=== PATIENT | male | born 1945 | race African-American/Black ===

== ENCOUNTER → 2018-06-25 | Outpatient (CLI) | payer MEDICARE ==
[~2018-06-25] MED LIST: REGADENOSON 0.4 MG/5 ML DISP.SYRIN. IV ONE
--- NOTE | 2018-06-25 09:49 | CARD ---
MR#: [id number] Date of Study: 06/25/2018 Ordering Physician: ISA HUGO, Referring Physician: ISA HUGO, Tech: Haylee Aguayo APPROVED REPORT EXAM: Two-dimensional and M-mode echocardiogram with Doppler and color Doppler. Other Information Quality : GoodHR: 82bpm INDICATION CAD RISK FACTORS Hypertension Hyperlipidemia Smoking 2D DIMENSIONS Left Atrium(2D)2.6 (1.6-4.0cm)IVSd1.2 (0.7-1.1cm) Aortic Root(2D)2.8 (2.0-3.7cm)LVDd5.2 (3.9-5.9cm) LVOT Diameter2.0 (1.8-2.4cm)PWd0.9 (0.7-1.1cm) LVDs3.8 (2.5-4.0cm)FS (%) 25.7 % SV63.7 mlLVEF(%)50.2 (>50%) Aortic Valve AoV Peak Zane.141.5cm/sAoV VTI25.1cm AO Peak GR.8.0mmHgLVOT Peak Zane.73.0cm/s LVOT VTI 13.89cmAO Mean GR.4mmHg MINE (VMAX)1.12mo3WPO (VTI)1.77cm2 Mitral Valve MV E Kyajwpvd35.2cm/sMV E Peak Gr.149mmHg MV DECEL [id number] A Mqnltmxq85.3cm/s MV E Mean Gr.3mmHgMV UKY47xr E/A Ratio0.8MVA (PHT)3.02cm2 TDI E/Lateral E'9.1E/Medial E'13.9 Pulmonary Valve PV Peak Hlhnihls91.1cm/sPV Peak Grad.4mmHg Tricuspid Valve TR P. Vidsxiuc856rn/sRAP LKFLIUIJ8hyOe TR Peak Gr.72fwTrAKZT09yyMq Pulmonary Vein S1 Tykhlnsb53.4cm/sD2 Ravaldyw57.8cm/s PVa urtmkflz021hcuf LEFT VENTRICLE The left ventricle is normal size. There is borderline concentric left ventricular hypertrophy. The s ystolic function is moderately impaired. EF 30-35% There is moderate global hypokinesis of the left v entricle. Transmitral Doppler flow pattern is Grade I-abnormal relaxation pattern. RIGHT VENTRICLE The right ventricle is normal size. There is normal right ventricular wall thickness. The right ventr icular systolic function is normal. ATRIA The left atrium size is normal. The right atrium size is normal. The interatrial septum is intact wit h no evidence for an atrial septal defect or patent foramen ovale as noted on 2-D or Doppler imaging. AORTIC VALVE The aortic valve is normal in structure and function. Doppler and Color Flow revealed no significant aortic regurgitation. There is no significant aortic valvular stenosis. MITRAL VALVE The posterior leaflet is restricted. There is no evidence of mitral valve prolapse. There is no suha l valve stenosis. Doppler and Color-flow revealed moderate posteriorly directed mitral regurgitation. TRICUSPID VALVE The tricuspid valve is normal in structure and function. Doppler and Color Flow revealed trace tricus pid regurgitation. There is no tricuspid valve stenosis. PULMONIC VALVE The pulmonic valve is not well visualized. There is no pulmonic valvular stenosis. GREAT VESSELS The aortic root is normal in size. The IVC is normal in size and collapses >50% with inspiration. PERICARDIAL EFFUSION There is a trace pericardial effusion. Critical Notification Critical Value: No <Conclusion> The systolic function is moderately impaired. EF 30-35% There is moderate global hypokinesis of the left ventricle. Doppler and Color-flow revealed moderate posteriorly directed mitral regurgitation. Signed by : Isa Hugo, Electronically Approved : 06/25/2018 09:47:07
--- NOTE | 2018-06-25 13:30 | RAD ---
MR#: [id number] Date of Study: 06/25/2018 Ordering Physician: ISA KAPLAN, Referring Physician: JUAN LOVE Tech: KARLIE Gama APPROVED REPORT Test Type: Pharmacological Stress Nurse/Tech: Micheline CASTAÑEDA Test Indications: CAD Cardiac History: CAD, HTN, CO in 2006 w/ 1 stent placement Medications: See EMR Medical History: X-Smoker, Hep C, See EMR Resting ECG: SR w/ BBB Resting Heart Rate: 75 bpm Resting Blood Pressure: 136/79mmHg Pretest Chest Pain: No chest pain Nurse/Tech Notes Lungs CTA, Heart tones regular Consent: The procedure was explained to the patient in lay terms. Informed consent was witnessed. Rehan eout was entered into [employer]. History and Stress Test performed by RT Karen (R) (N) Pharm. Details Pharmacologic stress testing was performed using 0.4mg per 5ml of regadenoson given intravenously ove r 7-10 seconds. Stress Symptoms No chest pain or symptoms. Pt has ST depression in leads II, III, AVF of 0.5-[address] is elevated by 1 box in AVL and V3. POST EXERCISE Reason for Termination: Infusion complete Max HR: 100 bpm Max Blood Pressure: 139/67mmHg Chest Pain: No. Arrhythmia: No. ST Change: Yes. See Stress Symptoms INTERPRETATION Stress EKG Conclusion: Baseline EKG showed sinus rhythm, IVCD, old septal CO. Non diagnostic changes at peak stress. No arrhythmias. Imaging Protocol IMAGE PROTOCOL: Rest Tc-99m/stress Tc-99m 1 day Rest: Stress: Viability: Radiopharm.Tc99m DfagsamktTo74k Sestamibi Dose11.9mCi 33mCi Duration 15min. 11min. Img Date 06/25/2018 06/25/2018 Inj-Img Wffl32cai. 60min. Rest Admin Site:IV - Right WristAdministrator:KARLIE Gama Stress Admin Site: IV - Right WristAdministrator: RT Karen (R)(N) STRESS DATA End Diast. Vol.156.0mlAv. Heart Rate88.0bpm End Syst. Vol.86.0mlCO Index BSA0.0L/min Myocardial Dsgn312.0gEject. Yvifuafe26.0% Stress Rates Pk. Fill Rate2.56EDV/secLVtime Pk. Fill 203.10msec Pk. Empty Rate2.18ESV/secLVtime Pk. Zayax420.28msec 1/3 Pk. Fill1.20EDV/sec Stress Scores Regional WT3.00Summed WT22.00 Regional WM0.00Summed WM27.00 Study quality was good. Left Ventricular size was Normal at Rest and Stress. Wall Motion Abnormal septal wall motion with ejection fraction calculated at 45%. LV Perf. Quant 17 Seg. SSS2.00 17 Seg. SRS2.00 17 Seg. SDS2.00 Stress Defect Extent (% LAD)0.00Rest Defect Extent (% LAD)0.00Rev. Defect Extent (% LAD)0.00 Stress Defect Extent (% LCX) 20.00Rest Defect Extent (% LCX)0.00Rev. Defect Extent (% LCX)20.00 Stress Defect Extent (% RCA)0.00Rest Defect Extent (% RCA)2.20Rev. Defect Extent (% RCA)0.00 Stress Defect Extent (% SHARON)4.30Rest Defect Extent (% SHARON)0.90Rev. Defect Extent (% SHARON)4.30 Conclusion 1. Regadenoson cardioisotope stress test did not show any evidence of ischemia or infarct. 2. Abnormal septal wall motion with ejection fraction calculated at 45%. 3. Low to intermediate risk for cardiac events. Signed by : Andres Vieira, Electronically Approved : 06/25/2018 13:28:23
== END | disposition home or self-care (01) ==
LOC: NM 07:31
PROVIDERS: ATTEND Internal Medicine Cardiovascular Disease
DX: I34.0 Nonrheumatic mitral (valve) insufficiency (principal); I25.10 Atherosclerotic heart disease of native coronary artery without angina pectoris; I10 Essential (primary) hypertension; E78.5 Hyperlipidemia, unspecified; F17.200 Nicotine dependence, unspecified, uncomplicated
CPT/HCPCS: 78452; 93017; 93306; 96374; A9500; J2785

== ENCOUNTER → 2018-12-27 | Outpatient (CLI) | payer MEDICARE ==
--- NOTE | 2018-12-27 14:02 | RAD ---
MR#: [id number] Date of Study: 12/27/2018 Ordering Physician: ISA KAPLAN, Referring Physician: ISA KAPLAN, Tech: Haylee Ordonez, HAYLEE, RVT, RTR APPROVED REPORT Patient Location: OUT-PATIENT Laterality:Bilateral Indications MS 2007 Risk Factors Hypertension: CAD, PAD Doppler Spectral Velocity Analysis Right Left pCCA 109/19 cm/spCCA 154/23 cm/s mCCA 96/16 cm/smCCA 154/30 cm/s dCCA 109/24 cm/sdCCA 134/23 cm/s Bulb 93/21 cm/sBulb 117/18 cm/s ECA 120/15 cm/sECA 167/22 cm/s pICA 106/20 cm/spICA 108/24 cm/s Lucrecia 83/23 cm/smICA 91/19 cm/s dICA 102/24 cm/sdICA 97/27 cm/s Vert. 63/13 cm/sVert. 73/17 cm/s ICA/CCA 0.97ICA/CCA 0.70 Findings Grayscale images of the bilateral carotid vessels demonstrates moderate diffuse plaque. Spectral waveforms and color Doppler of the right common carotid, internal carotid and external carot id vessels demonstrates overall 0 to less than 50% stenosis by velocity criteria. Normal ICA to CCA r atios. Normal antegrade vertebral velocities on the right side. Spectral waveforms and color Doppler suggest approximately moderate degree of stenosis at 50-69% by v elocity criteria involving the proximal and mid common carotid artery. No significant stenosis is álvaro ntified in the internal carotid vessels. There is likely again moderate disease noted in the external carotid artery. Normal ICA to CCA ratios on the left side. Normal vertebral velocities. Critical Notification Critical Value: No <Conclusion> 1. Mild to moderate bilateral carotid occlusive disease. No high-grade stenosis. Signed by : Isa Kaplan, Electronically Approved : 12/27/2018 14:01:40
== END | disposition home or self-care (01) ==
LOC: NM 09:58
PROVIDERS: ATTEND Internal Medicine Cardiovascular Disease
DX: I65.23 Occlusion and stenosis of bilateral carotid arteries (principal); I10 Essential (primary) hypertension; I73.9 Peripheral vascular disease, unspecified; I25.5 Ischemic cardiomyopathy
CPT/HCPCS: 78472; 93880; A9560

== ENCOUNTER → 2019-11-20 | Outpatient (CLI) | payer MEDICARE ==
--- NOTE | 2019-11-20 17:42 | RAD ---
MR#: [id number] Date of Study: 11/20/2019 Ordering Physician: ISA KAPLAN, Referring Physician: ISA KAPLAN, Tech: Perico Stone MBA, RDMS, RVT, RDCS, RTR APPROVED REPORT Patient Location: OUT-PATIENT Indications PVD Duplex Results A/PTransverseLongitudinal Proximal Aorta 2.5cm2.2cm Mid Aorta 2.3cm1.8cm Distal Aorta 2.2cm2.2cm Doppler VelocityWaveform Proximal Aorta 55.0 cm/sec Aorta Mid. 172.0 cm/sec Distal Aorta 189.0 cm/sec Rt. Common Iliac Sirtfl981.0 cm/sec Lt. Common Iliac Artery 93.0 cm/sec Findings Grayscale images of the abdominal aorta demonstrate moderate diffuse atherosclerotic plaque. No foca l aneurysm or dissection is noted. No significant stenosis identified. Dimensions as noted above. Critical Notification Critical Value: No <Conclusion> 1. No evidence of abdominal aortic aneurysm. Signed by : Isa Kaplan, Electronically Approved : 11/20/2019 17:41:51
== END | disposition home or self-care (01) ==
LOC: US 07:10
PROVIDERS: ATTEND Internal Medicine Cardiovascular Disease
DX: I73.9 Peripheral vascular disease, unspecified (principal); I70.0 Atherosclerosis of aorta
CPT/HCPCS: 76770

== ENCOUNTER → 2020-08-21 | Outpatient (CLI) | payer MEDICARE ==
--- NOTE | 2020-08-21 11:15 | CARD ---
MR#: [id number] Date of Study: 08/21/2020 Ordering Physician: ADAIR KAPLAN, Referring Physician: ADAIR KAPLAN, Tech: Yadira Mckay [facility] APPROVED REPORT EXAM: Two-dimensional and M-mode echocardiogram with Doppler and color Doppler. Other Information Quality : AverageHR: 62bpm Rhythm : NSR INDICATION CAD RISK FACTORS Hypertension Hyperlipidemia 2D DIMENSIONS RVDd1.9 (2.9-3.5cm)Left Atrium(2D)3.1 (1.6-4.0cm) IVSd0.9 (0.7-1.1cm)Aortic Root(2D)3.0 (2.0-3.7cm) LVDd4.6 (3.9-5.9cm)LVOT Diameter2.0 (1.8-2.4cm) PWd0.8 (0.7-1.1cm)LVDs3.3 (2.5-4.0cm) FS (%) 27.8 %SV52.6 ml LVEF(%)53.9 (>50%) Aortic Valve AoV Peak Zane.118.0cm/sAoV VTI28.7cm AO Peak GR.5.6mmHgLVOT Peak Zane.92.6cm/s AO Mean GR.3mmHgAVA (VMAX)2.43cm2 Mitral Valve MV E Thxodhja44.3cm/sMV DECEL ROQG262jz MV A Lunvyydq622.4cm/sE/A Ratio0.7 Pulmonary Valve PV Peak Tfsxmsqz18.3cm/s Tricuspid Valve TR P. Xktacitn947uu/sTR Peak Gr.19mmHg LEFT VENTRICLE The left ventricle is normal size. There is normal left ventricular wall thickness. The ejection frac tion is moderately impaired. Estimated ejection fraction 40%. There is global hypokinesis of the left ventricle. Septal motion suggestive of conduction defect. Transmitral Doppler flow pattern is Grade I-abnormal relaxation pattern. RIGHT VENTRICLE The right ventricle is normal size. There is normal right ventricular wall thickness. The right ventr icular systolic function is normal. ATRIA The left atrium size is normal. The right atrium size is normal. The interatrial septum is intact wit h no evidence for an atrial septal defect or patent foramen ovale as noted on 2-D or Doppler imaging. AORTIC VALVE The aortic valve is normal in structure and function. Doppler and Color Flow revealed no significant aortic regurgitation. There is no significant aortic valvular stenosis. MITRAL VALVE The mitral valve is normal in structure and function. There is no evidence of mitral valve prolapse. There is no mitral valve stenosis. Doppler and Color-flow revealed mild to moderate mitral regurgitat ion. TRICUSPID VALVE The tricuspid valve is normal in structure and function. Doppler and Color Flow revealed mild tricusp id regurgitation. Estimated PAP 20 mmHg. There is no tricuspid valve stenosis. PULMONIC VALVE Doppler and Color Flow revealed mild pulmonic valvular regurgitation. There is no pulmonic valvular s tenosis. GREAT VESSELS The aortic root is normal in size. The ascending aorta is normal in size. The IVC is normal in size a nd collapses >50% with inspiration. PERICARDIAL EFFUSION There is no evidence of significant pericardial effusion. Critical Notification Critical Value: No <Conclusion> The ejection fraction is moderately impaired. Estimated ejection fraction 40%. There is global hypokinesis of the left ventricle. Septal motion suggestive of conduction defect. Doppler and Color-flow revealed mild to moderate mitral regurgitation. Signed by : Adair Kaplan, Electronically Approved : 08/21/2020 11:15:07
== END ==
LOC: ECHO 07:36
PROVIDERS: ATTEND Internal Medicine Cardiovascular Disease
DX: I08.8 Other rheumatic multiple valve diseases (principal); I25.5 Ischemic cardiomyopathy
CPT/HCPCS: 93306

== ENCOUNTER → 2021-02-19 | Outpatient (CLI) | payer MEDICARE ==
--- NOTE | 2021-02-19 13:17 | RAD ---
MR#: [id number] Date of Study: 02/19/2021 Ordering Physician: ISA KAPLAN, Referring Physician: JUAN LOVE Tech: KARLIE Gama APPROVED REPORT Test Type: Pharmacological Stress Nurse/Tech: Angi Bain RN Test Indications: Ischemic Cardiomyopathy Cardiac History: HTN, [place] w/ stent 10+ yrs ago, See EMR. Medications: See EMR. Medical History: See EMR. Resting ECG: SR w/ BBB Resting Heart Rate: 65 bpm Resting Blood Pressure: 142/68mmHg Pretest Chest Pain: No chest pain Nurse/Tech Notes Lungs CTA, Heart tones regular. Consent: The procedure was explained to the patient in lay terms. Informed consent was witnessed. Rehan eout was entered into [employer] History and Stress Test performed by KARLIE Gama Pharm. Details Pharmacologic stress testing was performed using 0.4mg per 5ml of regadenoson given intravenously ove r 7-10 seconds. Stress Symptoms No chest pain or symptoms. POST EXERCISE Reason for Termination: Infusion complete Max HR: 89 bpm Max Blood Pressure: 155/75mmHg Blood Pressure response to exercise: Normal blood pressure response during stress. Chest Pain: No. Arrhythmia: No. few PVCs. ST Change: No. INTERPRETATION Stress EKG Conclusion: The resting EKG shows a sinus rhythm with a nonspecific interventricular block and nonspecific ST T wave changes. The stress EKG shows no significant changes from baseline. No EKG evidence of stress-induced ischemia. Imaging Protocol IMAGE PROTOCOL: Rest Tc-99m/stress Tc-99m 1 day Rest: Stress: Viability: Radiopharm.Tc99m UfpnciyjvAb45q Sestamibi Gkic17nCm 33mCi Duration 15min. 13min. Img Date 02/19/2021 02/19/2021 Inj-Img Blxb47eyo. 60min. Rest Admin Site:IV - Left WristAdministrator:RT Karen (R)(N) Stress Admin Site: IV - Left WristAdministrator: KARLIE Gama STRESS DATA End Diast. Vol.161.0mlLVEDV index BSA90.0ml End Syst. Vol.100.0mlLVESV index BSA56.0ml Myocardial Jgfp933.0gEject. Dwqkxxtb52.0% Stress Scores Regional WT3.00Summed WT24.00 Regional WM1.00Summed WM27.00 LV Perfusion The stress scans show mild inferior wall thinning. The rest scans show mild inferior wall thinning. Nuclear imaging shows no significant reversible ischemia. Nuclear imaging shows mild fixed inferior wall thinning most suggestive of an attenuation defect. Wall Motion Left ventricular systolic function is moderately decreased on the global basis with an ejection fract ion of 36%. LV Perf. Quant 17 Seg. SSS5.00 17 Seg. SRS3.00 17 Seg. SDS4.00 Stress Defect Extent (% LAD)0.00Rest Defect Extent (% LAD)1.30Rev. Defect Extent (% LAD)0.00 Stress Defect Extent (% LCX) 13.80Rest Defect Extent (% LCX)0.00Rev. Defect Extent (% LCX)13.80 Stress Defect Extent (% RCA)15.60Rest Defect Extent (% RCA)18.90Rev. Defect Extent (% RCA)3.30 Stress Defect Extent (% SHARON)8.00Rest Defect Extent (% SHARON)6.10Rev. Defect Extent (% SHARON)3.90 Conclusion 1. Abnormal resting EKG but no EKG evidence of stress-induced ischemia. 2. Nuclear imaging shows no significant reversible ischemia. 3. Nuclear imaging shows a mild fixed inferior wall defect which is most suggestive of an attenuation defect. 4. Moderately decreased LV systolic function on a global basis with an ejection fraction of 36%. 5. Moderate to moderately high risk Lexiscan nuclear stress test. Signed by : Kevin Perez MD Electronically Approved : 02/19/2021 13:17:18
== END ==
LOC: NM 08:44
PROVIDERS: ATTEND Internal Medicine Cardiovascular Disease
DX: I25.5 Ischemic cardiomyopathy (principal); R94.39 Abnormal result of other cardiovascular function study
CPT/HCPCS: 78452; 93017; A9500; J2785

== ENCOUNTER 2021-07-26 08:58 | Observation (INO) | payer MEDICARE ==
[~2021-07-26] VITALS: Ht 180.3 cm; Wt 59.9 kg
[~2021-07-26 08:58] MED LIST changes: +IV RINGERS,LACTATED 1000ML 1,000 ML IV SCH; +LIDOCAINE 1% PF 5 ML VIAL. ONE; +PROPOFOL 100 ML IV ONE; -REGADENOSON 0.4 MG/5 ML DISP.SYRIN. IV ONE
[2021-07-26] MEDS ORDERED: SACU1TAB7 PO (09:21)
[2021-07-26] MEDS ORDERED: ATOR20TA58 PO (09:21)
[2021-07-26] MEDS ORDERED: CLOP75TA PO (09:21)
[2021-07-26] MEDS ORDERED: ASPI-630 PO (09:21)
[2021-07-26] MEDS ORDERED: METO50TA4 PO (09:21)
[2021-07-26] MEDS ORDERED: SPIR25TA5 PO (09:21)
[2021-07-26] MEDS ORDERED: CILO100T PO (09:21)
--- NOTE | 2021-07-26 09:34 | EKG ---
[facility] [address] [place] [address] Test Date: 2021-07-26 Test Time: 09:29:22 Pat Name: SHAHEED ARAYA Department: Room: Gender: Registered Nurse: SJ : 1945 Requested By: LEXIS VIEIRA Order Number: [id number] Reading MD: Lexis Vieira Measurements Intervals [place] Rate: 79 P: 90 MD: 138 QRS: 59 QRSD: 138 T: 88 QT: 412 QTc: 479 Interpretive Statements SINUS RHYTHM LEFT BUNDLE BRANCH BLOCK Electronically Signed On 07-29-2021 8:54:46 RESIDENT CARE SUPERVISOR by Lexis Vieira
[2021-07-26 09:36] LABS: HEMATOCRIT 37.4 % (39.0-53.0); HEMOGLOBIN 11.7 g/dL (13.0-17.5); RED BLOOD COUNT 4.66 x10^6/uL (4.30-5.70); RED CELL DISTRIBUTION WIDTH 16.3 % (11.5-14.5); WHITE BLOOD COUNT 9.1 x10^3/uL (4.0-11.0)
[2021-07-26 09:41] VITALS: BP 147/78
[2021-07-26] MEDS ORDERED: ceFAZolin SODIUM IV Push 1 GM VIAL. IVP ONE ×4 (09:44→19:00)
[2021-07-26 09:50] LABS: PROTHROMBIN TIME PATIENT 13.5 SEC (11.7-14.0)
[2021-07-26 09:56] LABS: CALCIUM 8.9 mg/dL (8.5-10.1); CREATININE 1.2 mg/dL (0.7-1.3); GFR 71.6; POTASSIUM 4.1 mmol/L (3.5-5.1)
[2021-07-26] MEDS ORDERED: ceFAZolin SODIUM 1 GM in IV NORMAL SALINE 100ML 100 ML IRR ONE (10:30)
[2021-07-26] MEDS ORDERED: LIDOCAINE 2%/EPI 1:100,000 20 ML VIAL. ONE (10:32)
[2021-07-26] MEDS ORDERED: IODIXANOL 320 MG/ML 100 ML VIAL. ONE (10:33)
[2021-07-26] MEDS ORDERED: LIDOCAINE 2%/EPI 1:100,000 20 ML VIAL. IJ ONE (11:15)
[2021-07-26] MEDS ORDERED: IODIXANOL 320 MG/ML 100 ML VIAL. IART ONE (11:15)
[2021-07-26] MEDS ORDERED: IV NORMAL SALINE 1000ML BAG 1,000 ML IV SCH (13:15)
--- NOTE | 2021-07-26 13:52 | RAD ---
EXAM: XR CHEST 1V 07/26/2021 1:36 PM CLINICAL INDICATION: Post pacemaker COMPARISON: None TECHNIQUE: AP upright view of the chest FINDINGS: There is a pacemaker/AICD. Heart is normal in size. Lungs are well-expanded. There are yfn cified granulomas in the left lung. There is no consolidation, pleural effusion, or pneumothorax. IMPRESSION: No pneumothorax. Electronically signed by: Aurora Hebert MD (07/26/2021 1:50 PM) [id number]
[2021-07-26 13:55] VITALS: BP 174/85
--- NOTE | 2021-07-26 14:08 | NUR ---
ADMISSION PT [facility]IA FROM BLOOD BANK ATTENDANT AT 1355. HE IS ON A GURNEY, TRANSFERS BY SLIDING WITH ASSIST OF 2. CALL LIGHT IN REACH. ORIENTED TO ROOM ET PLAN OF CARE FOR REMAINDER OF SHIFT. INTAKE INFORMATION COVERED WITH PATIENT.
--- NOTE | 2021-07-26 15:30 | CARD ---
MR#: [id number] Date of Study: 07/26/2021 Ordering Physician: LEXIS VIEIRA, Referring Physician: LEXIS VIEIRA, Tech: APPROVED REPORT EXAM 1. Successful implantation of Biotronik biventricular implantable cardioverter defibrillator (BiV IC D)/cardiac resynchronization therapy-defibrillator (SET BUILDER-D) 2. Defibrillation thresholds measurement at the time of implantation SEDATION ADMINISTERED BY ANESTHESIA FLUORO TIME: 26.9 MIN DOSE: 37.5 GYCM2 CONTRAST: 70CC VISI INDICATIONS Primary prevention of sudden cardiac and cardiac resynchronization therapy in a patient with kn own history of ischemic cardiomyopathy with EF less than 35% and left bundle branch block PROCEDURE After explaining the risks, benefits, and alternative options, informed consent was obtained from the patient. The patient was brought to the cardiac catheterization lab and the left chest and shoulder were prepp ed and draped in the usual fashion. IV conscious sedation was used throughout procedure with appropriate monitoring and was performed in the presence of a registered nurse who was an independent trained observer other than the physician p erforming the procedure. Specimen(s) Removed: No Estimated Blood loss: 20 cc's. 30 cc of 2% lidocaine was infiltrated into the skin and subcutaneous tissues for local anesthesia. A n incision was made over the left infraclavicular fossa and using blunt dissection and cautery, a poc ket was created. Venous access was obtained in the left subclavian vein and 9 Estonian coronary sinus sheath was inserted. Contrast injections were performed using CASS2 catheter in the right atrium and coronary sinus ostium was engaged and CS sheath advanced. Coronary sinus venogram was obtained to i dentify the appropriate cardiac vein for positioning the left ventricular lead. A Biotronik quadripolar left ventricular lead model Rivacor 7HF-T QP, serial #[id number] was advanced u nder fluoroscopic guidance and the tip was positioned in the middle cardiac vein. Venous access was again obtained in the left subclavian vein and 8 and 6 Estonian sheaths inserted. A Biotronik bipolar active-fixation right ventricular lead model Plexa ProMRI, serial #[id number] was advanced under fluoro scopy guidance and the tip was positioned in the right ventricular apex. Following this, a Biotronik bipolar active-fixation right atrial lead model Solia, serial #[id number] was positioned in the righ t atrial appendage. The leads were secured into place and were attached to a Biotronik biventricular ICD/SET BUILDER-D generator. This was placed in the pocket that was subsequently closed in 3 layers. Hemos tasis was secured. Ventricular fibrillation was then induced to check the defibrillation threshold. Patient successfull y converted to sinus rhythm with a 15 J shock therapy. The left ventricular lead showed a sensing am plitude of 20 mV, impedance of 769 ohms and a threshold of 0.7 V. The right ventricular lead showed a sensing amplitude of 14 mV, impedance of 549 ohms and a threshold of 0.8 V. The right atrial lead showed a sensing amplitude of 4.5 mV, impedance of 549 ohms and a threshold of 0.7 V. Patient tolera murphy the procedure well. There were no immediate complications. CONCLUSION Successful implantation of Biotronik biventricular ICD/SET BUILDER-D for primary prevention of sudden cardiac and cardiac resynchronization therapy in a patient with known history of ischemic cardiomyopat hy and left bundle branch block. Signed by : Lexis Vieira, Electronically Approved : 07/26/2021 15:29:57
[2021-07-26] MEDS: traMADol 50 MG TABLET PO PRN (18:18)
[2021-07-26 19:26] VITALS: BP 135/72
[2021-07-26 22:45] VITALS: BP 144/76
[2021-07-27 02:39] VITALS: BP 116/66
[2021-07-27 07:00] VITALS: BP 129/71
[2021-07-27] MEDS ORDERED: ASPIRIN CHEWABLE 81 MG TABLET. PO SCH (08:00)
[2021-07-27] MEDS: traMADol 50 MG TABLET PO PRN (08:35)
[2021-07-27] MEDS ORDERED: SACUBITRIL/VALSARTAN 49/51MG TABLET. PO SCH (09:00)
[2021-07-27] MEDS ORDERED: METOPROLOL SUCC 24HR ER 50 MG TAB.ER.24H. PO SCH (09:00)
[2021-07-27] MEDS ORDERED: SPIRONOLACTONE 25 MG TABLET PO SCH (09:00)
[2021-07-27] MEDS ORDERED: CLOPIDOGREL BISULFATE 75 MG TABLET PO SCH (09:00)
[2021-07-27] MEDS ORDERED: CILOSTAZOL 50 MG TABLET. PO SCH (09:00)
[2021-07-27] MEDS ORDERED: ATORVASTATIN CALCIUM 20 MG TABLET PO SCH (09:00)
--- NOTE | 2021-07-27 09:34 | RAD ---
AP and Lateral Views of the Chest 07/27/2021 9:18 AM Indication: Reason: 1 day post pacemaker Comparison: Chest radiograph July 26, 2021 Findings: Multilead pacemaking/ICD device from left subclavian approach is similar. There is no focal consolidation or infiltrate identified. No pneumothorax. Heart size is normal. No focal infiltrate o r effusion is seen. No acute osseous changes are seen. Impression: No evidence of pneumothorax or other acute cardiopulmonary process. Electronically signed by: Сергей Pedersen MD (07/27/2021 9:32 AM) [id number]
[2021-07-27 10:38] VITALS: BP 115/62
--- NOTE | 2021-07-27 12:26 | NUR ---
SS following for discharge planning. SS reviewed pt chart and discussed with pt RN. Pt is from home with spouse and is currently on room air. Cardiology following. Pt had lead revision on 07/26/2021. Discharge order on the chart for home with self care.
--- NOTE | 2021-07-27 12:49 | PDOC3 ---
MAYURI BARNES [employer] 07/27/21 1249: Discharge Summary Visit Information Date of Admission: Jul 26, 2021 Date of Discharge: Jul 27, 2021 Admitting Diagnosis: icm, htn, chronic systolic CHF, LBBB Final Diagnosis ICM, HTN, chronic systolic CHF, LBBB, S/P HELP DESK REPRESENTATIVE-D Brief Hospital Course Allergies Allergies Coded Allergies Type Severity Reaction Last Updated Verified No Known Drug Allergies 06/25/18 No Vital Signs Vital Signs Date Time Temp Pulse Resp B/P (MAP) Pulse Ox O2 Delivery O2 Flow Rate FiO2 07/27/21 10:38 98.7 84 18 115/62 (79) 95 Room Air 98.7 07/26/21 15:01 1.0 Lab Results Laboratory Tests Test 07/26/21 09:25 White Blood Count 9.1 x10^3/uL (4.0-11.0) Red Blood Count 4.66 x10^6/uL (4.30-5.70) Hemoglobin 11.7 g/dL (13.0-17.5) Hematocrit 37.4 % (39.0-53.0) Mean Corpuscular Volume 80 fL (79-100) Mean Corpuscular Hemoglobin 25 pg (25-35) Mean Corpuscular Hemoglobin Concent 31 g/dL (31-37) Red Cell Distribution Width 16.3 % (11.5-14.5) Platelet Count 259 x10^3/uL (140-400) Prothrombin Time 13.5 SEC (11.7-14.0) Prothromb Time International Ratio 1.0 (0.8-1.1) Sodium Level 143 mmol/L (136-145) Potassium Level 4.1 mmol/L (3.5-5.1) Chloride Level 107 mmol/L (98-107) Carbon Dioxide Level 26 mmol/L (21-32) Anion Gap 10 (6-14) Blood Urea Nitrogen 10 mg/dL (8-26) Creatinine 1.2 mg/dL (0.7-1.3) Estimated GFR (Cockcroft-Gault) 71.6 Glucose Level 105 mg/dL (70-99) Calcium Level 8.9 mg/dL (8.5-10.1) Brief Hospital Course Mr. Gamboa is a 75 yo male admitted for planned HELP DESK REPRESENTATIVE-D placement. He had a successful implantation of Biotronik biventricular ICD/HELP DESK REPRESENTATIVE-D for primary prevention of sudden cardiac and cardiac resynchronization therapy in a patient with known history of ischemic cardiomyopathy and left bundle branch block. He tolerated porcedure well without immediate complications and repeat interrogation revelaed impedances within parameters. He is on plavix, ASA and cilostazol at home and overnight his left chest incision continues to have slow serosanguinous bleed. No hematoma. Dressing was change and remains to be oozing. Will continue to apply pressure dressing, discussed with RN and will continue dressing changes as needed. Will hold ASA and cilostazol for the next 5 days but will continue plavix. Denies any surgical pain. Incision is approximated otherwise with steri strips. No chest pain or SOA. Neurovascular status to LUE intact and sling in place. AOX3, LSCTA. Abd soft and nontender and no peripheral edema. VSS. SR without significant ectopies. Continue secondary prevention measures. Post AICD care instruction given. Discharge Information Condition at Discharge: Stable Follow Up: Weeks (2) Disposition/Orders: D/C to Home Scheduled Aspirin (Aspirin) 81 Mg Tab.chew, 1 TAB PO DAILY for heart, #30 Ref 3 (Reported) Entered as Reported by: Mariah Arthur on 07/26/21920 Last Taken: Unknown Dose on Unknown Date & Time Last Action: Continued on 07/27/21635 by TERA SALAZAR Atorvastatin Calcium (Atorvastatin Calcium) 20 Mg Tablet, 1 TAB PO DAILY for cholesterol, #30 Ref 5 (Reported) Entered as Reported by: Mariah Arthur on 07/26/21920 Last Taken: Unknown Dose on Unknown Date & Time Last Action: Continued on 07/27/21635 by TERA SALAZAR Cilostazol (Cilostazol) 100 Mg Tablet, 100 MG PO DAILY for peripheral vascular disease, (Reported) Entered as Reported by: Mariah Arthur on 07/26/21920 Last Taken: Unknown Dose on Unknown Date & Time Last Action: Converted on 07/27/21635 by TERA SALAZAR Clopidogrel Bisulfate (Clopidogrel) 75 Mg Tablet, 1 TAB PO DAILY for heart, #90 Ref 1 (Reported) Entered as Reported by: Mariah Arthur on 07/26/21920 Last Taken: Unknown Dose on Unknown Date & Time Last Action: Continued on 07/27/21635 by TERA SALAZAR Metoprolol Succinate (Toprol XL) 50 Mg Tab.er.24h, 50 MG PO DAILY for FOR HYPERTENSION, (Reported) Entered as Reported by: Mariah Arthur on 07/26/21920 Last Taken: Unknown Dose on 07/26/21 Last Action: Continued on 07/27/21635 by TERA SALAZAR Sacubitril/Valsartan (Entresto 49 mg-51 mg Tablet) 1 Each Tablet, 1 EACH PO BID for hypertension, (Reported) Entered as Reported by: Mariah Arthur on 07/26/21920 Last Taken: Unknown Dose on 07/26/21 Last Action: Continued on 07/27/21635 by TERA SALAZAR Spironolactone (Spironolactone) 25 Mg Tablet, 1 TAB PO DAILY for diuretic, #90 Ref 1 (Reported) Entered as Reported by: Mariah Arthur on 07/26/21920 Last Taken: Unknown Dose on Unknown Date & Time Last Action: Continued on 07/27/21635 by TERA SALAZAR Patient Instructions Patient Instructions Must know & what to expect after device implant: 1. Your surgical dressing should be removed prior to discharge from the hospital, but allow the steri- strips to fall off naturally. 2. Activity restrictions: DO NOT raise arm above shoulder level, lift anything heavier than a gallon of milk, and no push or pull motions such as vacuuming/lawn mowing, no swinging motions (golf), etc for 4 weeks. 3. It is OK to use a cell phone or other electronic devices just be sure you do not store it in a breast pocket on the side where the device was placed. 4. Device will be interrogated prior to your discharge from the hospital and then every 3 months for defibrillators and every 6 months for pacemakers. You may be asked to have your device checked remotely from home as well, but this will depend on your particular physicians preference. 5. You may remove the arm immobilizer the day after device placement. Wear the arm immobilizer/splint at night (during sleep times) for 2 week to prevent unintended arm movement that can cause lead dislodgement. 6. Do not drive for one week as the task of driving may lead to unintended arm motion that may cause lead dislodgement. The seatbelt will also rub against the incision site & cause irritation. 7. It is our recommendation that you utilize Tylenol at home for pain control. You need to call our office if you are having uncontrollable pain at the incision site. 8. Keep your incision clean and dry. It is OK to shower. DO NOT submerge in bath, pool, or hot tub, until cleared by your doctor, as this could lead to increase risk of infection.. It is OK to use regular soap just do not scrub the incision site. Water spray from shower should not directly hit the incision. Be sure to blot dry not rub. 9. Inspect your incision daily. If you notice any increased redness, swelling, or drainage, or if you start running a fever, call the office immediately. The number is [phone]. 10. For women, if you need to protect against irritation from the bra straps, you can place a piece of gauze over the incision site for cushion. Please be sure to tape it loosely to allow air to the site & remove the gauze when you remove the bra. 11. Be sure to carry your device identification information card in your wallet/purse at all times. 12. It is OK to go through security at the airport with your device, but be wade re to let the TSA know prior to proceeding as the security settings change depending on varying factors. Please do whatever is requested by security at that time. 13. Some of the newer devices may be MRI compatible but, currently, the use of these devices is not widespread, so you likely will not be able to have an MRI. Please clarify this with your physician. Special instructions for defibrillator patients: If your device recognizes a rhythm that requires treatment with a shock, you will most likely feel the shock. This is usually not a subtle feeling and it is uncomfortable. Please follow these steps if you receive a shock: Call the office if you receive one shock. Go to the emergency room if you receive two consecutive shocks- please have someone drive you & call 911 if nobody is available- DO NOT drive yourself. Call 911 if you receive more than 2 consecutive shocks. If at any time, you feel lightheaded or dizzy/faint, stop what you are doing & lie down immediately. If you are driving, get to the side of the road quickly, turn your car off & call 911 on your cell phone. DO NOT continue to drive as this may cause an accident that seriously injures yourself &/or others. Call the office at [phone] for any questions or concerns. Justicifation of Admission Dx: Justifications for Admission: Justification of Admission Dx: Yes LEXIS HOUSER MD 07/27/211555: Discharge Summary Brief Hospital Course Brief Hospital Course Patient seen and examined. Agree with VISCOSITY INSPECTOR's assessment and plan. Patient underwent successful BiVICD/HELP DESK REPRESENTATIVE-D yesterday for primary prevention of SCD and cardiac resynchronization therapy. Defibrillation thresholds were measured at the time of implantation. Incision looks good and CXR without pneumothorax. Device check normal DC home today and f/u for wound check in 2 weeks. Discharge Information Scheduled Aspirin (Aspirin) 81 Mg Tab.chew, 1 TAB PO DAILY for heart, #30 Ref 3 (Reported) Entered as Reported by: Mariah Arthur on 07/26/21920 Last Taken: Unknown Dose on Unknown Date & Time Last Action: Continued on 07/27/21635 by TERA SALAZAR Atorvastatin Calcium (Atorvastatin Calcium) 20 Mg Tablet, 1 TAB PO DAILY for cholesterol, #30 Ref 5 (Reported) Entered as Reported by: Mariah Arthur on 07/26/21920 Last Taken: Unknown Dose on Unknown Date & Time Last Action: Continued on 07/27/21635 by TERA SALAZAR Cilostazol (Cilostazol) 100 Mg Tablet, 100 MG PO DAILY for peripheral vascular disease, (Reported) Entered as Reported by: Mariah Arthur on 07/26/21920 Last Taken: Unknown Dose on Unknown Date & Time Last Action: Converted on 07/27/21635 by TERA SALAZAR Clopidogrel Bisulfate (Clopidogrel) 75 Mg Tablet, 1 TAB PO DAILY for heart, #90 Ref 1 (Reported) Entered as Reported by: Mariah Arthur on 07/26/21920 Last Taken: Unknown Dose on Unknown Date & Time Last Action: Continued on 07/27/21635 by TERA SALAZAR Metoprolol Succinate (Toprol XL) 50 Mg Tab.er.24h, 50 MG PO DAILY for FOR HYPERTENSION, (Reported) Entered as Reported by: Mariah Arthur on 07/26/21920 Last Taken: Unknown Dose on 07/26/21 Last Action: Continued on 07/27/21635 by TERA SALAZAR Sacubitril/Valsartan (Entresto 49 mg-51 mg Tablet) 1 Each Tablet, 1 EACH PO BID for hypertension, (Reported) Entered as Reported by: Mariah Arthur on 07/26/21920 Last Taken: Unknown Dose on 07/26/21 Last Action: Continued on 07/27/21635 by TERA SALAZAR Spironolactone (Spironolactone) 25 Mg Tablet, 1 TAB PO DAILY for diuretic, #90 Ref 1 (Reported) Entered as Reported by: Mariah Arthur on 07/26/21920 Last Taken: Unknown Dose on Unknown Date & Time Last Action: Continued on 07/27/21635 by MAYURI IVEY APRN Jul 27, 2021 12:49 LEXIS HOUSER MD Jul 27, 2021 15:56
--- NOTE | 2021-07-27 15:45 | NUR ---
Patient's pacemaker site continues to bleed. Pressure dressings & ice placed. MIKE Smith aware. Awaiting a call back to see whether or not patient can discharge.
--- NOTE | 2021-07-27 17:12 | NUR ---
pacemaker dressing removed. had smaller than dime size dried blood on it. removed steristrip on the end medial side of incision. cleaned area- no bleeding noted. skin prep and more steri strips applied- telfa island dressing applied. no further bleeding issues. new pressure roll applied to surface of dressing over incision line. discussed with nurse to check site in and hour and if no bleeding it should be ok for pt to d/c to home. if further bleeding noted to reapply pressure roll and call Dr. Vieira.
--- NOTE | 2021-07-27 18:35 | NUR ---
Discharge Note: SHAHEED ARAYA [address] [place] [address] Discharge instructions and discharge home medications reviewed with Patient and a copy given. All questions have been answered and understanding verbalized. The following instructions and handouts were given: discharge instructions, med list, follow ups, PPM AICD post care education. Discontinued lines and drains: Peripheral IV intact. Patient discharged to Home or Self Care with Family Member via Wheelchair at 1835. Patient's dressing had no shadowing of blood. Patient & family member instructed on dressing care & told to go to cardiology office tomorrow if bleeding still.
== END 2021-07-27 18:35 | disposition home or self-care (01) ==
LOC: SURG 08:58 → 6 SOUTH 09:52
PROVIDERS: ADMIT Internal Medicine Cardiovascular Disease; ATTEND Internal Medicine Cardiovascular Disease
DX: I25.5 Ischemic cardiomyopathy (principal); I44.7 Left bundle-branch block, unspecified; I11.0 Hypertensive heart disease with heart failure; I50.22 Chronic systolic (congestive) heart failure; I73.9 Peripheral vascular disease, unspecified; Z79.02 Long term (current) use of antithrombotics/antiplatelets; Z79.82 Long term (current) use of aspirin; Z79.899 Other long term (current) drug therapy
CPT/HCPCS: 33225; 33249; 36415; 71045; 71046; 80048; 85027; 85610; 93005; 93640; 96374; C1769; C1882; G0378; G0379; J0690; J2704; J3490; Q9967